=== PATIENT | male | born 1945 | race Caucasian/White ===

== ENCOUNTER 2019-12-26 10:40 | Emergency (ER) | payer OTHER ==
--- NOTE | 2019-12-26 11:30 | RAD ---
Exam: Chest one view HISTORY:Cough. Nausea and vomiting x2 days. Shortness of breath. Comparison: 05/03/2015 FINDINGS: Pacemaking: Interval placement of a left-sided 3-lead defibrillator with lead positioned over the rig ht atrium, right ventricle and coronary sinus. Cardiac silhouette:Enlarged cardiac silhouette. There are sternotomy wires. Aorta: Unremarkable Pulmonary vessels: Normal Costophrenic angles: Clear LUNGS: Patchy interstitial and alveolar opacities. Pneumothorax: None Osseous abnormalities: None IMPRESSION: Probable congestive heart failure. Superimposed infiltrate cannot be excluded. Continued surveillance is recommended.
[2019-12-26 11:41] LABS: Bacteria/HPF None Seen HPF (None Seen); Bilirubin Negative (Negative); Blood, Urine Trace (Negative); Clarity Turbid (Clear); Glucose, Urine (Dipstick) Normal (Negative); Leukocyte Negative Leu/uL (Negative); Nitrite Negative (Negative); Protein, Urine (Dipstick) 70 mg/dL (Neg-Trace); RBC/HPF 0-3 HPF (0-3); Squamous Epithelial None Seen HPF (0-3); Urobilinogen Normal mg/dL (Less than 2); WBC/HPF 0-3 HPF (0-3)
[2019-12-26 12:13] LABS: Mean Corpuscular HGB CONC 32.5 g/dL (32.0-36.0); Mean Corpuscular Hemoglobin 31.3 pg (27.0-31.0); Mean Corpuscular Volume 96.5 fL (78.0-98.0); Mean Platelet Volume 7.5 fL (7.4-10.4); Platelet Count 145 thou/uL (130-400); RBC Distribution Width 13.3 % (11.5-14.5); Red Blood Cell (RBC) Count 4.14 mill/uL (4.70-6.10); White Blood Cell (WBC) Count 7.8 thou/uL (4.8-10.8)
[2019-12-26 12:29] LABS: Band 7 % (5-11); Lymphocytes 4 % (21-51); MDiff Complete? YES; Monocytes 2 % (0-10); Neutrophil 85 % (42-75); Platelet Morphology Comment Appears Adequate; RBC Morphology Normal; Reactive Lymphocytes 2 % (0-10)
[2019-12-26 12:46] LABS: ALT (SGPT) 9 U/L (8-55); AST (SGOT) 41 U/L (5-34); Albumin 3.1 g/dL (3.4-4.8); Alkaline Phosphatase 64 U/L (40-110); Anion Gap 16 mmol/L (10-20); BUN (Urea Nitrogen) 59 mg/dL (8.4-25.7); Bilirubin, Total 0.5 mg/dL (0.2-1.2); Calc. Creatinine Clearance 0 mL/min (70-130); Calcium 7.9 mg/dL (7.8-10.44); Carbon Dioxide 17 mmol/L (23-31); Chloride 105 mmol/L (98-107); Estimated GFR-MDRD 27; Globulin 3.5 g/dL (2.4-3.5); Glucose 80 mg/dL (83-110); Protein, Total 6.6 g/dL (5.8-8.1); Sodium 133 mmol/L (136-145)
[2019-12-26 13:32] LABS: CKMB 5.7 ng/mL (0-6.6)
[2019-12-26] MEDS ORDERED: Azithromycin 500 MG VIAL ONE (13:51)
[2019-12-26] MEDS ORDERED: cefTRIAXone\\ROCEPHIN 2 GM VIAL ONE (13:51)
[2019-12-26] MEDS ORDERED: Aspirin Chewable 81 MG TAB ONE (13:51)
[2019-12-26 15:39] LABS: Lactic Acid 1.4 mmol/L (0.5-2.2)
[2019-12-26] MEDS ORDERED: Furosemide 40 MG/4 ML VIAL ONE (16:58)
[2019-12-27 12:37] LABS: SARS-CoV-2 MS2 Positive; SARS-CoV-2 N Gene Positive; SARS-CoV-2 S Gene Positive; SARS-CoV-2 orf1ab Positive
--- NOTE | 2020-01-02 14:23 | EKG ---
Test Reason : Blood Pressure : / mmHG Vent. Rate : 080 BPM Atrial Rate : 080 BPM P-R Int : 136 ms QRS Dur : 160 ms QT Int : 466 ms P-R-T Axes : 046 254 083 degrees QTc Int : 537 ms Electronic ventricular pacemaker Confirmed by DELMA CHOW M.D. ([id number]), greeting card editor JASPREET MELTON ([id number]) on 01/02/2020 2:23:18 PM Referred By: Confirmed By:DELMA CHOW M.D.
== END 2019-12-26 22:23 | disposition short-term general hospital (02) ==
LOC: ERS 10:40
DX: U07.1 COVID-19 (principal); J12.89 Other viral pneumonia; R09.02 Hypoxemia; I11.0 Hypertensive heart disease with heart failure; I50.9 Heart failure, unspecified; Z20.828 Contact with and (suspected) exposure to other viral communicable diseases; E11.9 Type 2 diabetes mellitus without complications; E03.9 Hypothyroidism, unspecified; E78.5 Hyperlipidemia, unspecified; E78.00 Pure hypercholesterolemia, unspecified; Z87.891 Personal history of nicotine dependence; Z79.4 Long term (current) use of insulin; Z79.899 Other long term (current) drug therapy
CPT/HCPCS: 36415; 51701; 71045; 80053; 81003; 81015; 82553; 83605; 83880; 84484; 85025; 87040; 87086; 87635; 93005; 96361; 96365; 96367; 96375; J0456; J0696; J1940; U0003